=== PATIENT | male | born 1995 | race African-American/Black ===

== ENCOUNTER 2018-09-17 00:36 | Emergency (ER) | payer SELFPAY ==
[~2018-09-17] VITALS: Ht 182.9 cm; Wt 103.4 kg
[2018-09-17 00:51] VITALS: BP 100/68; Ht 182.9 cm; Wt 103.4 kg
== END 2018-09-17 02:57 | disposition left against medical advice (07) ==
LOC: ED 00:36
DX: Z53.21 Procedure and treatment not carried out due to patient leaving prior to being seen by health care provider (principal)